=== PATIENT | male | born 1980 | race Caucasian/White ===

== ENCOUNTER 2018-11-05 04:33 | Emergency (ER) | payer OTHER ==
[2018-11-05] MEDS ORDERED: SODIUM CHLORIDE 1,000 ML IV STA (04:36)
[2018-11-05] MEDS ORDERED: morphine CARPU-JECT 4 MG/1 ML DISP.SYRIN IVPUSH ONE ×2 (04:36→06:10)
[2018-11-05] MEDS ORDERED: MORPHINE SULFATE 2 MG/ML VIAL IVPUSH ONE (04:36)
[2018-11-05] MEDS ORDERED: morphine SULFATE 4 MG/ML VIAL ONE ×2 (04:36→06:11)
[2018-11-05] MEDS ORDERED: ONDANSETRON 4 MG/2 ML VIAL IVPB ONE (04:36)
[2018-11-05 04:45] VITALS: BMI 38.4
--- NOTE | 2018-11-05 04:51 | PDOC ---
History of Present Illness - General Chief Complaint: Pain, Acute Stated Complaint: L FLANK PAIN Time Seen by Provider: 11/05/18 04:35 History Source: Patient Exam Limitations: No Limitations - History of Present Illness Initial Comments: 11/05/18 04:47 37yo M presenting with L flank pain radiating to the L groin. Pt states that yesterday morning he had hematuria (cranberry colored). He went to bed but then woke up with pain in the L flank. Pain is now radiating to the L groin, is colicky. He denies dysuria, frequency, fevers, chills, vomiting, diarrhea, constipation, bloody stools, testicular pain, injury. Has not taken anything for the pain. Has not had kidney stones in the past. PMD: Reyes PMH: Thyroidectomy PSH: thyroidectomy Meds: synthroid Allergies: Nkda Social: smokes cigarettes, occasional alcohol use Past History - Past Medical History Allergies/Adverse Reactions: Allergies Allergy/AdvReac Type Severity Reaction Status Date / Time No Known Allergies Allergy Verified 11/05/18 04:43 Home Medications: Ambulatory Orders Ibuprofen 600 mg PO TID #15 tablet 11/05/18 Tamsulosin HCl [Flomax] 0.4 mg PO DAILY #7 capsule 11/05/18 - Suicide/Smoking/Psychosocial Hx Smoking History: Never smoked Have you smoked in the past 12 months: No Information on smoking cessation initiated: No Hx Alcohol Use: Yes (Social) Drug/Substance Use Hx: No Review of Systems - Review of Systems Constitutional: No: Symptoms Reported HEENTM: No: Symptoms Reported Respiratory: No: Symptoms reported Cardiac (ROS): No: Symptoms Reported ABD/GI: Yes: See HPI : Yes: See HPI Musculoskeletal: Yes: See HPI Integumentary: No: Symptoms Reported Neurological: No: Symptoms reported *Physical Exam - Vital Signs Last Vital Signs Temp Pulse Resp BP Pulse Ox 98.8 F 95 H 18 165/98 98 11/05/18 04:33 11/05/18 04:33 11/05/18 04:33 11/05/18 04:33 11/05/18 04:33 - Physical Exam General Appearance: Yes: Nourished, Appropriately Dressed, Mild Distress HEENT: positive: EOMI, JOSE EDUARDO Neck: positive: Trachea midline, Supple Respiratory/Chest: positive: Lungs Clear, Normal Breath Sounds Cardiovascular: positive: Regular Rhythm, Regular Rate, S1, S2. negative: Edema , JVD, Murmur Vascular Pulses: Dorsalis-Pedis (R): 2+, Doralis-Pedis (L): 2+ Gastrointestinal/Abdominal: positive: Normal Bowel Sounds, Soft. negative: Tender, Rebound, Tenderness, Hernia Musculoskeletal: negative: CVA Tenderness, CVA Tenderness (R), CVA Tenderness (L ) Extremity: positive: Normal Capillary Refill. negative: Swelling, Calf Tenderness Integumentary: positive: Normal Color, Dry, Warm Neurologic: positive: physician office nurse II-XII NML intact, Fully Oriented, Alert, Normal Mood/ Affect, Normal Response, Motor Strength 08/11 ED Treatment Course - LABORATORY CBC & Chemistry Diagram: 11/05/18 04:46 11/05/18 04:46 - RADIOLOGY Radiology Studies Ordered: Category Date Time Status SPIRAL- RENAL-STONE CT [CT] Stat CT Scan 11/05/18 04:35 Ordered Medical Decision Making - Medical Decision Making 11/05/18 04:50 37yo M presenting with L flank pain radiating to the L groin. Pt states that yesterday morning he had hematuria (cranberry colored). He went to bed but then woke up with pain in the L flank. Pain is now radiating to the L groin. He denies dysuria, frequency, fevers, chills, vomiting, diarrhea, constipation, bloody stools, testicular pain, injury. Has not taken anything for the pain. Has not had kidney stones in the past. Vitals: PE: no abdominal tenderness, no flank tenderness. normal bowel sounds Ddx includes but not limited to kidney stone, renal infarction, uti, pyelonephritis, colitis, pancreatitis, gastritis high suspicion for stone -cbc, cmp, ua ucx -iv fluids, morphine, zofran -spiral ct. will check renal function prior to giving toradol. reassess 11/05/18 06:[address]: 4 mm stone mid left ureter causing minimal hydronephrosis. Unremarkable pancreas and gallbladder. No bowel obstruction, colitis, free fluid or free air. Normal appendix. Hepatomegaly and steatosis. Will reassess. Pending UA results 11/05/18 06:15 toradol did not help. 4mg morphine 11/05/18 06:50 Still waiting for ua. if negative, can be dc home. Rx given. If positive, will need urology consult and admission for septic stone. pt appears comfortable, sleeping in stretcher. given strainer and urology f\u. *DC/Admit/Observation/Transfer Diagnosis at time of Disposition: Ureteral stone - Discharge Dispostion Disposition: HOME Condition at time of disposition: Good Decision to Admit order: No - Prescriptions Prescriptions: Ibuprofen 600 mg PO TID #15 tablet Tamsulosin HCl [Flomax] 0.4 mg PO DAILY #7 capsule - Referrals Referrals: Hesham Sy MD [Staff Physician] - - Patient Instructions Printed Discharge Instructions: DI for Kidney Stones Additional Instructions: You were seen in the emergency room for flank pain. The cat scan shows a 4mm stone in the mid left ureter. This will likely pass. You can take Motrin for the pain as needed. Two prescriptions were sent to your pharmacy, take as directed. Make sure to drink plenty of fluids! Try to stay away from alcohol, coffee or sodas for the time being A strainer has been provided. Use it every time you urinate to catch the stone. A referral to urology has been provided (information below). I suggest making an appointment sometime this week. Come back to the emergency room for worsening pain, difficulty urinating, fevers , chills or if any new concerning symptom develops. Thank you - Post Discharge Activity
[2018-11-05 05:09] LABS: BASO % 0.6 % (0-2.0); EOS % 2.7 % (0-4.5); HEMATOCRIT 45.2 % (35.4-49); HEMOGLOBIN 15.5 GM/dL (11.7-16.9); LYMPH % 46.6 % (8-40); MCH 30.8 pg (25.7-33.7); MCHC 34.4 g/dl (32.0-35.9); MEAN CELL VOLUME 89.4 fl (80-96); MONO % 7.1 % (3.8-10.2); PLATELET COUNT 236 K/MM3 (134-434); RBC 5.05 M/mm3 (4.00-5.60); RDW 16.6 % (11.9-15.9); WHITE BLOOD COUNT 9.7 K/mm3 (4.0-10.0)
--- NOTE | 2018-11-05 05:11 | PDOC ---
Attending Attestation - Resident Resident Name: Aneta Robb - ED Attending Attestation I have performed the following: I have examined & evaluated the patient, The case was reviewed & discussed with the resident, I agree w/resident's findings & plan, Exceptions are as noted - HPI HPI: 11/05/18 05:08 37 yo male with no pmhx here with left flank pain. hematuria. started yesterday , becamse worse today. pt works as an EMT. no mod factors. radiatingn to groing. no f/c did have n/v. not worse wit movement. positive family h/o kidney stones - Physicial Exam PE: 11/05/18 05:10 awake alertl lungs clear bilat heart rrrr no mrg abd soft nt nd ext wwp no cva tenderness. skin warm and dry. - Medical Decision Making 11/05/18 05:11 37 yo flank pain.differential uti renal colic msk strain. plan ct a/p labs ua 11/05/18 08:00 pt with left sided uvj stone 4mm, mild hydro. feels improved. will dc home with pain control urology followup.
[2018-11-05 05:38] LABS: BILIRUBIN,TOTAL 0.4 mg/dL (0.2-1); BLOOD UREA NITROGEN 10.4 mg/dL (7-18); CREATININE 1.1 mg/dL (0.55-1.3); POTASSIUM 3.7 mmol/L (3.5-5.1); TOT PROT 7.4 g/dl (6.4-8.2)
[2018-11-05] MEDS ORDERED: KETOROLAC TROMETHAMINE 30 MG/1 ML VIAL IVPUSH ONE (05:41)
[2018-11-05] MEDS ORDERED: KETOROLAC TROMETHAMINE 15 MG/ML VIAL ONE (05:54)
[2018-11-05 06:55] LABS: URINE APPEARANCE CLOUDY; URINE COLOR DK YELLOW; URINE GLUCOSE (UA) NEGATIVE (NEGATIVE)
[2018-11-05 07:01] LABS: URINE BILIRUBIN NEGATIVE (NEGATIVE); URINE KETONE TRACE (NEGATIVE)
[2018-11-05 07:02] LABS: URINE NITRITE NEGATIVE (NEGATIVE); URINE PROTEIN 2+ (NEGATIVE)
--- NOTE | 2018-11-05 07:06 | PDOC ---
*Physical Exam - Vital Signs Last Vital Signs Temp Pulse Resp BP Pulse Ox 98.8 F 95 H 18 165/98 98 11/05/18 04:33 11/05/18 04:33 11/05/18 04:33 11/05/18 04:33 11/05/18 04:33 ED Treatment Course - LABORATORY CBC & Chemistry Diagram: 11/05/18 04:46 11/05/18 04:46 - ADDITIONAL ORDERS Additional order review: Laboratory Results 11/05/18 04:46 Sodium 142 Potassium 3.7 Chloride 105 Carbon Dioxide 29 Anion Gap 8 BUN 10.4 Creatinine 1.1 Est GFR (CKD-EPI)AfAm 98.18 Est GFR (CKD-EPI)NonAf 84.71 Random Glucose 94 Calcium 9.0 Total Bilirubin 0.4 AST 47 H ALT 88 H Alkaline Phosphatase 84 Total Protein 7.4 Albumin 4.0 11/05/18 04:46 RBC 5.05 MCV 89.4 MCHC 34.4 RDW 16.6 H MPV 9.0 Neutrophils % 43.0 Lymphocytes % 46.6 H Monocytes % 7.1 Eosinophils % 2.7 Basophils % 0.6 - Medications Given in the ED: ED Medications Discontinued Medications Generic Name Dose Route Start Last Admin Trade Name Freq PRN Reason Stop Dose Admin Sodium Chloride 1,000 mls @ 1,000 mls/hr 11/05/18 04:36 11/05/18 04:44 Normal Saline - IV 11/05/18 05:35 1,000 mls/hr ASDIR STA Administration Ketorolac Tromethamine 15 mg 11/05/18 05:41 11/05/18 05:58 Toradol Injection - IVPUSH 11/05/18 05:42 15 mg ONCE ONE Administration Morphine Sulfate 4 mg 11/05/18 04:36 11/05/18 04:44 Morphine Injection - IVPUSH 11/05/18 04:37 4 mg ONCE ONE Administration Morphine Sulfate 4 mg 11/05/18 04:36 11/05/18 05:28 Morphine Sulfate IVPUSH 11/05/18 04:37 Not Given ONCE ONE Morphine Sulfate 4 mg 11/05/18 06:10 11/05/18 06:14 Morphine Injection - IVPUSH 11/05/18 06:11 4 mg ONCE ONE Administration Ondansetron HCl 4 mg 11/05/18 04:36 11/05/18 04:44 Zofran Injection IVPB 11/05/18 04:37 4 mg ONCE ONE Administration *DC/Admit/Observation/Transfer Diagnosis at time of Disposition: Ureteral stone - Discharge Dispostion Disposition: HOME Condition at time of disposition: Good - Prescriptions Prescriptions: Ibuprofen 600 mg PO TID #15 tablet Tamsulosin HCl [Flomax] 0.4 mg PO DAILY #7 capsule - Referrals Referrals: Hesham Sy MD [Staff Physician] - - Patient Instructions Printed Discharge Instructions: DI for Kidney Stones Additional Instructions: You were seen in the emergency room for flank pain. The cat scan shows a 4mm stone in the mid left ureter. This will likely pass. You can take Motrin for the pain as needed. Two prescriptions were sent to your pharmacy, take as directed. Make sure to drink plenty of fluids! Try to stay away from alcohol, coffee or sodas for the time being A strainer has been provided. Use it every time you urinate to catch the stone. A referral to urology has been provided (information below). I suggest making an appointment sometime this week. Come back to the emergency room for worsening pain, difficulty urinating, fevers , chills or if any new concerning symptom develops. Thank you - Post Discharge Activity
[2018-11-05 07:33] LABS: URINE RBC 3+ /hpf (0-4); URINE WBC 1+ /hpf (0-5)
[2018-11-05 07:34] VITALS: BP 134/78; PULSE 89; TEMP 98.5
[2018-11-05 07:34] LABS: EPI CELLS FEW /HPF (0-5/HPF); URINE LEUK ESTERASE TRACE (NEGATIVE)
[2018-11-05 07:35] LABS: URINE CRYSTALS 2+ /hpf
== END 2018-11-05 07:34 | disposition home or self-care (01) ==
LOC: JER 04:33
PROC: 3E033NZ Introduction of Analgesics, Hypnotics, Sedatives into Peripheral Vein, Percutaneous Approach (ICD-10-PCS; principal; 2018-11-05)
PROC: 3E0333Z Introduction of Anti-inflammatory into Peripheral Vein, Percutaneous Approach (ICD-10-PCS; 2018-11-05)
DX: N13.2 Hydronephrosis with renal and ureteral calculous obstruction (principal)
CPT/HCPCS: 36415; 74176-TC; 80053; 81003; 85025; 87086; 99283-25; J7030